=== PATIENT | female | born 1965 | race Caucasian/White ===

== ENCOUNTER 2020-08-20 07:56 | Outpatient (CLI) | payer OTHER, SELFPAY ==
--- NOTE | ~2020-08-20 | US_ITS ---
US right upper quadrant INDICATION: Abnormal liver function tests PROCEDURE: Realtime right upper abdominal ultrasound. COMPARISON: 02/13/2019 FINDINGS: The pancreas is normal without focal mass or pancreatic ductal dilation. Liver echotexture is increased, consistent with fatty infiltration. There is normal directional flow in the portal ve in. The gallbladder is normal without stones, gallbladder wall thickening or pericholecystic fluid. Comm on bile duct measures 4 mm. No sonographic Guerrier's sign. IMPRESSION: 1: Hepatic steatosis. Reviewed, dictated and finalized at location B. IMPRESSION: 1: Hepatic steatosis.
== END 2020-08-20 07:57 | disposition home or self-care (01) ==
PROVIDERS: PCP Family Medicine; Visit Provider Family Medicine
DX: R94.5 Abnormal results of liver function studies (principal); K76.0 Fatty (change of) liver, not elsewhere classified
CPT/HCPCS: 76705

== ENCOUNTER 2021-11-24 11:37 | Outpatient (CLI) | payer OTHER, SELFPAY ==
--- NOTE | ~2021-11-24 | XR_ITS ---
EXAMINATION: XR chest 2V 11/24/2021 12:11 INDICATION: Cough for 6 days PROCEDURE: 2 view chest COMPARISON: Comparison to multiple prior studies sequentially, with oldest reviewed study dated . FINDINGS: There is right basilar atelectasis. No focal pneumonia, edema, pleural effusion or pneumoth orax. The cardiomediastinal silhouette is within normal limits. IMPRESSION: 1: Right basilar atelectasis. Reviewed, dictated and finalized at location B.
== END 2021-11-24 11:38 | disposition home or self-care (01) ==
PROVIDERS: PCP Family Medicine; Visit Provider Family Medicine
DX: R05.9 Cough, unspecified (principal); J98.11 Atelectasis
CPT/HCPCS: 71046

== ENCOUNTER 2022-02-14 15:03 | Inpatient (IN) | payer OTHER, SELFPAY ==
[2022-02-14] VITALS (7 sets, daily range): BP systolic 72–152; BP diastolic 55–92; PULSE 87–100; RESP 16–23; TEMP 36.2; O2SAT 96–98
--- NOTE | ~2022-02-14 | US_ITS ---
US abdomen limited DATE: 02/15/2022 22:23 INDICATION: Elevated alkaline phosphatase TECHNIQUE: Real-time imaging of liver, pancreas, gallbladder COMPARISON: 02/14/2022 CT abdomen pelvis FINDINGS: There are numerous hypoattenuating mass lesions vertebral size throughout the liver most li vipul due to extensive hepatic metastatic disease. There is normal hepatopedal portal venous flow. The gallbladder is contracted which may account for wall thickening up to approximately 6 mm. Negativ e sonographic Guerrier's sign. Common bile duct measures 5 mm, within normal limits. No pancreatic mass lesion or ductal dilatation is noted. IMPRESSION: Extensive hepatic masses throughout the liver, likely due to metastatic disease Reviewed, dictated and finalized at [facility]. Reviewed, dictated and finalized at location A. ATION REVIEWER IMPRESSION: Extensive hepatic masses throughout the liver, likely due to metast atic disease
--- NOTE | ~2022-02-14 | US_ITS ---
EXAMINATION: US biopsy liver DATE: 02/16/2022 14:38 INDICATION: Liver mass. TECHNIQUE: The procedure including the risks, benefits, and alternatives was discussed with the patie nt. Risks discussed included bleeding and infection. The patient understood the risks and agreed to p roceed. The skin overlying the left hepatic lobe was prepped and draped in usual sterile fashion. An esthetic was administered with 1% lidocaine subcutaneously. An 18 gauge core biopsy needle was then used to obtain 4 core biopsy specimens under continuous sonographic guidance. The entry site was eileen charles and dressed. There were no immediate complications. FINDINGS: Ultrasound images demonstrate the needle in a 4 cm hypoechoic mass in left hepatic lobe. IMPRESSION: 1. Ultrasound-guided core needle biopsy of a liver mass. Reviewed, dictated and finalized at location A. ROOM COURIER
--- NOTE | ~2022-02-14 | CT_ITS ---
EXAMINATION: CT diagnostic chest w con DATE: 02/17/2022 19:19 INDICATION: Cough and weakness TECHNIQUE: Transaxial computed tomographic images of the chest were obtained after the administration of 75 cc of Omnipaque 350 intravenous contrast. The dose-length product (DLP) was 157.49 mGy-cm. Ite rative reconstruction was used. COMPARISON: None FINDINGS: There is widespread thoracic lymphadenopathy involving the supraclavicular regions, the rig ht upper mediastinum, right paratracheal lymph nodes, aorticopulmonary window lymph nodes, the bilate ral suad, and subcarinal lymph nodes. There are small pleural effusions. There is dependent atelectas is of the lungs. There is widespread intralobular septal thickening which could reflect mild pulmonar y edema. The heart size is normal. There is scarring in the lung apices. There are innumerable hypoat tenuating masses scattered throughout the visualized liver. Also noted are multiple hypoattenuating l esions of the spleen. IMPRESSION: 1. Widespread thoracic lymphadenopathy and innumerable liver masses, consistent with metastatic disea se. Liver biopsy pending. 2. Small pleural effusions with dependent atelectasis. 3. Interlobular septal thickening of the lungs which could reflect pulmonary edema. Reviewed, dictated and finalized at location F. ING DRAGLINE OILER IMPRESSION: 1. Widespread thoracic lymphadenopathy and innumerable liver masses, consistent with metastatic disease. Liver biopsy pending. 2. Small pleural effusions with dependent atelectasis. 3. Interlobular septal thickening of the lungs which could reflect pulmonary ed evelyn.
--- NOTE | ~2022-02-14 | MR_ITS ---
MRI of the abdomen: Clinical indication: Abdominal pain. Technique: Coronal T2-weighted, T2 fat-sat, axial T1-weighted in and out of phase images, diffusion w eighted imaging, T2-weighted imaging was performed. Following intravenous administration of 14 cc Mul tiHance gadolinium, T1-weighted fat-sat imaging was performed in the axial and coronal planes. COMPARISON: CT scan dated 02/14/2022 Findings: There are innumerable T2 hyperintense, T1 hypointense lesions scattered throughout the live r, with the lesions demonstrating surrounding parenchymal edematous change on T2-weighted images. The re is peripheral enhancement of the lesions on postcontrast images. Gallbladder, pancreas, adrenal glands, and kidneys are unremarkable. Spleen demonstrates several lesi ons which are hypointense on both T1-weighted and T2-weighted images, without significant postcontras t enhancement. Shotty periaortic lymph nodes are noted. No aortic aneurysm. No ascites. Impression: Innumerable hepatic lesions, as detailed above, which correlate with those seen on yesterday's CT sca n. Findings are again suspicious for metastatic disease versus the possibility of numerous small hepa tic abscesses. Clinical correlation required. Consider tissue sampling. Shotty periaortic lymph nodes. These could be reactive versus metastatic in nature. Several splenic lesions are hypointense on both T1-weighted and T2-weighted images, without significa nt postcontrast enhancement. These are nonspecific. Reviewed, dictated and finalized at [facility]. UNICATIONS TOWER TECHNICIAN Impression: Innumerable hepatic lesions, as detailed above, which correlate with those seen on yesterday's CT scan. Findings are again suspicious for metastatic disease v ersus the possibility of numerous small hepatic abscesses. Clinical correlation required. Consider tissue sampling. Shotty periaortic lymph nodes. These could be reactive versus metastatic in demond ure. Several splenic lesions are hypointense on both T1-weighted and T2-weighted bambi ges, without significant postcontrast enhancement. These are nonspecific.
--- NOTE | ~2022-02-14 | CT_ITS ---
EXAMINATION: CT brain wo con DATE: 02/14/2022 17:59 INDICATION: One week of worsening weakness, dizziness and lack of coordination TECHNIQUE: Computed tomography (CT) of the head was performed without intravenous contrast. Sagittal and coronal reconstructions were performed. The mA was adjusted according to patient size. Iterative reconstruction technique was employed. The dose-length product was 605.33 mGy-cm. COMPARISON: None FINDINGS: No acute intracranial hemorrhage, acute infarction or abnormal extra axial fluid collection. There is mild scattered white matter hypoattenuation consistent with chronic small vessel ischemic disease. S ymmetric prominence of the sulci and subarachnoid spaces overlying the convexities consistent with mi ld age-appropriate diffuse cerebral volume loss. Ventricles are normal and symmetric. No mass/mass ef fect. Mucosal thickening in the bilateral ethmoid sinuses and small amount of bubbly mucus in the dep endent right maxillary sinus. The orbits and mastoid air cells are normal. IMPRESSION: 1. No acute intracranial process. 2. Age-related changes in the brain including mild diffuse volume loss and mild scattered white matte r hypoattenuation consistent with chronic small vessel ischemic disease. 3 . Bubbly mucus in the right maxillary sinus which could be seen with acute sinusitis. Reviewed, dictated and finalized at location A. IAC CATH TECHNICIAN IMPRESSION: 1. No acute intracranial process. 2. Age-related changes in the brain including mild diffuse volume loss and mild scattered white matter hypoattenuation consistent with chronic small vessel is chemic disease. 3 . Bubbly mucus in the right maxillary sinus which could be seen with acute si nusitis.
--- NOTE | ~2022-02-14 | XR_ITS ---
EXAMINATION: XR chest 2V DATE: 02/14/2022 15:41 INDICATION: One week of cough and weakness TECHNIQUE: PA and lateral views of the chest were obtained. COMPARISON: Chest radiograph dated 11/24/2021 FINDINGS: Mild bronchial wall thickening and increased interstitial pattern in the bilateral lower lung zones. No pleural effusion or pneumothorax. The cardiomediastinal silhouette is normal. Mild to moderate tho racic spondylosis. IMPRESSION: 1. Mild bronchial wall thickening and increased interstitial pattern in the bilateral lower lung zone s which could represent bronchitis potentially with early pneumonia, reactive airway disease/asthma o r mild pulmonary edema. Reviewed, dictated and finalized at location A. L CLEANER TUBE IMPRESSION: 1. Mild bronchial wall thickening and increased interstitial pattern in the karen ateral lower lung zones which could represent bronchitis potentially with early pneumonia, reactive airway disease/asthma or mild pulmonary edema.
--- NOTE | ~2022-02-14 | CT_ITS ---
EXAMINATION: CT abdomen pelvis w con DATE: 02/14/2022 19:07 INDICATION: Right upper quadrant abdominal pain, nausea and vomiting TECHNIQUE: Computed tomography (CT) of the abdomen and pelvis was performed with 100 mL Omnipaque-350 intravenous contrast. Automated exposure control and iterative reconstruction technique were employe d. The dose-length product was 220.20 mGy-cm. COMPARISON: None FINDINGS: Mild emphysema at the lung bases. Heart size is normal. No pericardial or pleural effusion. Hepatomeg brigido. There are multiple centrally hypodense lesions scattered throughout the liver with ill-defined p eripherally enhancing rims, the largest individual lesion located in the posterior right hepatic lobe with the hypodense region measuring proximal a 2 cm diameter and diameter of the region of periphera l enhancement measuring approximately 3.3 cm. A few of the lesions become nearly confluent in segment 4A at the anteromedial dome of the liver. Gallbladder, pancreas, bilateral adrenal glands and kidney s are normal. Possible approximately 1.5 cm region at the cephalad aspect of the pancreas with air ap pears to be very subtly decreased enhancement. Extensive colonic diverticulosis without adjacent infl ammatory stranding to suggest diverticulitis mild colonic wall thickening most prominent at the ascen ding and sigmoid colon suspicious for colitis which could be infectious, inflammatory or ischemic in etiology. No bowel obstruction. Normal appendix. Small amount of ascites in the deep pelvis. There ar e some periportal lymphadenopathy. Bladder and anteverted uterus are unremarkable. There are few phle boliths in the pelvis with moderate lower thoracic and mild lumbar spondylosis. IMPRESSION: 1. Numerous peripherally enhancing centrally hypodense lesions scattered throughout the liver most li vipul metastatic disease although differential would include hepatic abscesses in the appropriate clin ical setting. Consider ultrasound-guided biopsy and/or aspiration. 2. Diffuse colonic wall thickening consistent with colitis which could be infectious, inflammatory or ischemic in etiology. 3. Possible 1.5 cm slightly hypoenhancing lesion at the dome of the spleen potentially metastatic. 4. Periportal lymphadenopathy which could be reactive or metastatic. 5. Extensive diverticulosis. 6. Small amount of ascites in the pelvis. 7. Mild emphysema at the lung bases.. Reviewed, dictated and finalized at location A. SMISSION SUPERVISOR IMPRESSION: 1. Numerous peripherally enhancing centrally hypodense lesions scattered throug hout the liver most likely metastatic disease although differential would inclu de hepatic abscesses in the appropriate clinical setting. Consider ultrasound-g uided biopsy and/or aspiration. 2. Diffuse colonic wall thickening consistent with colitis which could be infec tious, inflammatory or ischemic in etiology. 3. Possible 1.5 cm slightly hypoenhancing lesion at the dome of the spleen pote ntially metastatic. 4. Periportal lymphadenopathy which could be reactive or metastatic. 5. Extensive diverticulosis. 6. Small amount of ascites in the pelvis. 7. Mild emphysema at the lung bases..
--- NOTE | 2022-02-14 15:19 | ECG_ITS ---
Measurements Intervals Disney Rate: 116 P: 87 OR: 158 QRS: 79 QRSD: 104 T: 60 QT: 356 QTc: 496 Interpretive Statements SINUS TACHYCARDIA MARKED ST DEPRESSION, CONSIDER SUBENDOCARDIAL INJURY [0.2+ mV ST DEPRESSION] NO PREVIOUS ECG AVAILABLE FOR COMPARISON Electronically Signed On 02-14-2022 22:08:54 SUPPLY CHAIN PLANNER by Lilli Wall M.D.
[2022-02-14 16:07] LABS: Lactic Acid Reflex 1.6 mmol/L (0.7-2.0)
[2022-02-14] MEDS: SODIUM CHLORIDE 0.9% IV 1,000 ML 999 ML (16:18)
--- NOTE | 2022-02-14 16:19 | PC.NURSE ---
Pt hypotensive in triage, no rooms available at this time. Bolus of NS started per Dr. Major
[2022-02-14 16:47] LABS: Influenza A QL RT-PCR Negative (Negative); Influenza B QL RT-PCR Negative (Negative); RSV RNA, RT-PCR Negative (Negative); SARS-CoV-2 RNA PCR Negative
--- NOTE | 2022-02-14 17:21 | ED.GENADULT ---
HPI - General Adult General Chief complaint: Weakness <ANDRY Anderson Last Filed: 02/15/22 02:59> Stated complaint: weakness <ANDRY Anderson Last Filed: 02/15/22 02:59> Time Seen by Provider: 02/14/22 17:04 <Clarisa Dooley PA-C - Last Filed: 02/15/22 02:59> Source: patient and family <ANDRY Anderson Last Filed: 02/15/22 02:59> Mode of arrival: ambulatory <ANDRY Anderson Last Filed: 02/15/22 02:59> Limitations: no limitations <Clarisa Dooley PA-C - Last Filed: 02/15/22 02:59> History of Present Illness HPI narrative: Patient is a 56-year-old female who presents ED with multiple complaints. Patient reports she has had a nonproductive cough for the last 1 week. She states she had an episode of abdominal pain and dizziness last week. She denies having any pain or dizziness currently. at bedside assisted in providing information. He reports patient is a 20 yr alcoholic, daily drinker, 1/2 - 3/4 fifth per day. He states she has not drank since and vomited after drinking that day. She has been mostly sleeping every day over the weekend. He denies history of withdrawal symptoms or withdrawal seizures. He states he brought the patient in today because she has been so weak with decreased PO intake, he is concerned her body is shutting down from the alcohol abuse. He states she has not been functioning much on her own this past week. Patient denies any headache, vision changes, fever, chest pain, difficulty breathing. <ANDRY Anderson Last Filed: 02/15/22 02:59> Related Data Home medications: Home Medications Medication Instructions Recorded Confirmed losartan 100 mg tablet 100 mg PO DAILY 07/23/21 02/15/22 metoprolol succinate 100 mg 100 mg PO DAILY 07/23/21 02/15/22 tablet,extended release 24 hr rosuvastatin 10 mg tablet 10 mg PO DAILY 02/15/22 02/15/22 <Clarisa Dooley PA-C Last Filed: 02/15/22 02:59> Allergies/adverse reactions: Allergies Allergy/AdvReac Type Severity Reaction Status Date / Time No Known Allergies Allergy Verified 02/15/22 17:45 <Clarisa Dooley PA-C Last Filed: 02/15/22 02:59> Review of Systems Review of Systems: CONSTITUTIONAL: Reports generalized weakness, decreased intake. Denies fever, chills, or sweats. EYES: Denies visual changes. ENT: Denies rhinorrhea, congestion, sore throat. CARDIOVASCULAR: Denies chest pain. RESPIRATORY: Reports dry cough. Denies dyspnea. GASTROINTESTINAL: Denies abdominal pain, nausea, vomiting, or diarrhea. GENITOURINARY: Denies dysuria or hematuria. NEUROLOGIC: Reports dizziness. Denies headache, numbness, or weakness. <Clarisa Dooley PA-C Last Filed: 02/15/22 02:59> All systems reviewed & are unremarkable except as noted in HPI and below <Clarisa Dooley PA-C Last Filed: 02/15/22 02:59> PMFSH Past Medical History Medical History: Medical History HTN (hypertension) Hyperlipidemia <Clarisa Dooley PA-C Last Filed: 02/15/22 02:59> Surgical History Surgical History: Surgical History History of ankle surgery History of carpal tunnel release of both wrists History of endometrial ablation History of knee surgery <Clarisa Dooley PA-C Last Filed: 02/15/22 02:59> Family History Family History: Family History Other Cerebrovascular accident Diabetes mellitus Family history of arthritis Family history of malignant neoplasm Heart disease Hypertension <Clarisa Dooley PA-C Last Filed: 02/15/22 02:59> Social History Social History: Social History Smoking packs per day: 0.5 Smoking cigarettes per day: 10.0 Smok
[2022-02-14 18:02] LABS: Basophils Absolute Auto 0.1 K/mm3 (0.0-0.1); Basophils Percent Auto 0.6 % (0.2-1.2); Eosinophils Percent Auto 0.1 % (0-4.4); Hematocrit 38.5 % (37.0-47.0); Hemoglobin 13.6 g/dL (12.0-15.0); Immature Granulocyte Absolute 0.13 K/mm3 (0.00-0.031); Immature Granulocyte Percent A 1.5 % (0-0.5); Lymphocytes Absolute Auto 0.92 K/mm3 (0.9-3.2); Lymphocytes Percent Auto 10.5 % (18.3-44.2); Mean Corpuscular HGB Conc 35.3 g/dl (32-36); Mean Corpuscular Hemoglobin 32.9 pg (26-34); Mean Platelet Volume 12.9 fl (7.4-10.4); Monocytes Absolute Auto 1.2 K/mm3 (0.1-0.6); Monocytes Percent Auto 13.8 % (2.6-8.5); Neutrophils Absolute Auto 6.5 K/mm3 (1.3-6.7); Neutrophils Percent Auto 73.5 % (45.5-73.1); Platelet Count Result 184 k/mm3 (150-375); Red Blood Count 4.14 M/mm3 (4.2-5.4); White Blood Count 8.8 K/mm3 (4.5-10.0)
[2022-02-14 18:09] LABS: Ethanol < 10 mg/dL (<10)
[2022-02-14 18:10] LABS: Prothrombin Time 12.9 Seconds (11.1-14.7)
[2022-02-14 18:11] LABS: Partial Thromboplastin Time 25.1 SECONDS (22.3-36.8)
[2022-02-14 18:22] LABS: NT Pro B Type Natriuretic Pept 616 pg/mL (5-100); Troponin I 0.016 ng/mL (0.000-0.034)
[2022-02-14 18:25] LABS: Alanine Aminotransferase 50 U/L (6-35); Albumin Level 3.6 g/dL (3.5-5.1); Alkaline Phosphatase 320 U/L (38-126); Anion Gap 8 mmol/L (8-16); Aspartate Amino Transferase 140 U/L (14-36); Bilirubin,Total 1.4 mg/dL (0.2-1.3); Blood Urea Nitrogen 17 mg/dL (7-17); Carbon Dioxide 33 mmol/L (22-30); Chloride 91 mmol/L (98-107); Estimated CRCL calculation 55 ml/min; Estimated Glomerular Filt Rate > 60; Glucose 105 mg/dL (65-110); Sodium 132 mmol/L (137-145)
[2022-02-14 18:27] LABS: Calcium 14.2 mg/dL (8.4-10.2)
[2022-02-14] MEDS: POTASSIUM CHLORIDE 20 MEQ PACKET (FOR LIQUID) 40 MEQ PO (18:45)
--- NOTE | 2022-02-14 18:53 | PC.NURSE ---
Pt to CT scan via stretcher at this time.
[2022-02-14 18:55] LABS: Bacteria Urine Trace /hpf; Mucus Urine Rare /lpf; RBC Urine 0-2 /hpf (0-2); Squamous Epithelial Cell Urine Few /hpf (Few)
[2022-02-14 19:03] LABS: Add Urine Microscopic? YES; Appearance Urine Clear (Clear); Bilirubin Urine 2+ (Negative); Blood Urine Negative (Negative); Color Urine Yellow (Yellow); Glucose Urine UA Negative (Negative); Ketones Urine 1+ mg/dL (Negative); Leukocyte Esterase Ur Negative LEU/UL (Negative); Nitrate Urine Negative (Negative); Protein Urine 1+ mg/dL (Negative)
[2022-02-14 19:12] LABS: Amphetamine Screen Urine Negative (Negative); Barbiturate Screen Urine Negative (Negative); Benzodiazepines Screen Urine Negative (Negative); Cannabinoid Screen Urine Negative (Negative); Cocaine Screen Urine Negative (Negative); Methadone Screen Urine Negative (Negative); Opiate Screen Urine Negative (Negative); Phencyclidine Screen Urine Negative (Negative)
--- NOTE | 2022-02-14 20:25 | PM.IMHP ---
H&P: HPI History of Present Illness Date/Time: 02/14/22 20:25 Chief Complaint: Generalized weakness Narrative: This is a 56-year-old female with past medical history significant for hypertension, alcohol dependence, tobacco dependence, dyslipidemia. patient presents to the emergency room due to generalized weakness, shortness of breath, fatigue, decreased stamina, cough, nonproductive, no change in sputum quality, no chest pain, no leg swelling, no syncope, near syncope, no lightheadedness, no fevers, no rigors, no chills, no nausea, no vomiting, no weight loss, patient has been very tired and sleeping most of the day as of lately.. Preliminary workup was significant for: CT of abdomen and pelvis was reported as: IMPRESSION: 1. Numerous peripherally enhancing centrally hypodense lesions scattered throughout the liver most likely metastatic disease although differential would include hepatic abscesses in the appropriate clinical setting. Consider ultrasound-guided biopsy and/or aspiration. 2. Diffuse colonic wall thickening consistent with colitis which could be infectious, inflammatory or ischemic in etiology. 3. Possible 1.5 cm slightly hypoenhancing lesion at the dome of the spleen potentially metastatic. 4. Periportal lymphadenopathy which could be reactive or metastatic. 5. Extensive diverticulosis. 6. Small amount of ascites in the pelvis. 7. Mild emphysema at the lung bases.. chest x-ray was reported as: IMPRESSION: 1. Mild bronchial wall thickening and increased interstitial pattern in the bilateral lower lung zones which could represent bronchitis potentially with early pneumonia, reactive airway disease/asthma or mild pulmonary edema. CT of the head was reported as: IMPRESSION: 1. No acute intracranial process. 2. Age-related changes in the brain including mild diffuse volume loss and mild scattered white matter hypoattenuation consistent with chronic small vessel ischemic disease. 3 . Bubbly mucus in the right maxillary sinus which could be seen with acute sinusitis. Review of Systems Review of Systems: generalized weakness, shortness of breath, cough, decreased stamina, poor appetite. Constitutional: Constitutional: Denies chills, Reports fatigue, Denies fever(s), Reports lethargy, Denies malaise, Reports poor appetite and Reports weakness Eyes: Eyes: Denies change in vision ENT: Denies dysphagia, Denies vertigo, Denies dizziness and Denies odynophagia Cardiovascular: Cardiovascular: Denies chest pain, Denies lightheadedness and Denies radiating jaw, neck or arm pain Respiratory: Respiratory: Denies change in phlegm color, Denies chest congestion, Reports cough, Denies excessive phlegm production, Denies pain on inspiration, Reports dyspnea, Reports dyspnea on exertion and Denies wheezing Gastrointestinal: Gastrointestinal: Denies abdominal pain, Denies dyspepsia, Denies heartburn, Denies diarrhea, Denies nausea and Denies vomiting Genitourinary: Genitourinary: Denies dysuria Musculoskeletal: Musculoskeletal: Denies back pain, Denies myalgias, Denies arthralgias, Denies joint swelling, Denies muscle cramps and Reports muscle weakness Integumentary/Breasts: Skin/Breast: Denies rash Neurologic: Denies vertigo, Denies dizziness, Denies focal weakness and Denies Sensory deficit (Neuro) Psychiatric: Psychiatric: Reports no additional psychiatric complaints and Reports as per HPI Endocrine: Endocrine: Denies cold intolerance, Denies flushing, Denies heat intolerance, Denies polyphagia, Denies polydipsia and Denies palpitations Hematologic/Lymphatic: Hematologic/Lymphatic: Reports no additional hematologic/lymphatic complaints and Reports as per HPI Allergic/Immunologic: Allergic/Immunologic: Reports no additional allergic/immunologic complaints and Reports as per HPI PMFSH Past Medical History Medical History HTN (hypertension) Hyperlipidemia Garcias
[2022-02-14] MEDS: POTASSIUM CHLORIDE INJ 40 MEQ in SODIUM CHLORIDE 0.9% IV 500 ML 130 MEQ IVPB (20:46)
[2022-02-15] VITALS (15 sets, daily range): BP systolic 130–164; BP diastolic 77–98; PULSE 92–103; RESP 15–23; TEMP 36.8; O2SAT 94–98
--- NOTE | 2022-02-15 | ECHO_ITS ---
Patient Info Name: Kathy Mccloud Age: 56 years : 1965 Gender: Female Ht: 65 in Wt: 154 lbs BSA: 1.80 m2 HR: 70 bpm BP: 151 / 86 mmHg Heart Rhythm: Sinus Rhythm Technical Quality: Good Exam Date: 02/15/2022 11:25 AM Exam Location: [facility] Pulmonary Exam Room: ED4B1 Patient Status: Outpatient Admit Date: 02/14/2022 Staff Ordering Physician: Trisha Waterman MD Loader Helper Sorting Yard: Stella Cevallos RCS Attending Provider: Trisha Waterman MD Referring Physician: Columba VORA; Exam Type: CA echo doppler color flow Study Info Indications - SOB Complete two-dimensional, color flow and Doppler transthoracic echocardiogram is performed. Summary 1. Complete two-dimensional, color flow and Doppler transthoracic echocardiogram is performed. 2. Left ventricular chamber dimension is normal. 3. Left ventricular systolic function is normal, estimated at 65-70%. 4. There is no increased left ventricular wall thickness. 5. The left ventricular diastolic function is grade I diastolic dysfunction. 6. Left atrial chamber dimension is mildly enlarged. 7. There is mild tricuspid valve regurgitation. 8. There is mild pulmonic regurgitation. Left Ventricle Left ventricular chamber dimension is normal. Left ventricular systolic function is normal, estimated at 65-70%. There is no increased left ventricular wall thickness. The left ventricular diastolic function is grade I diastolic dysfunction. Right Ventricle Right ventricular chamber dimension is normal. Right ventricular systolic function is normal. Left Atria Left atrial chamber dimension is mildly enlarged. Right Atria Right atrial chamber dimension is normal. Atrial Septum Intact interatrial septum visualized by color flow imaging. Aortic Valve The aortic valve is trileaflet. There is mild aortic valve sclerosis. There is no aortic valve stenosis. There is trace aortic valve regurgitation. Pulmonic Valve The pulmonic valve is normal. There is no pulmonic valve stenosis. There is mild pulmonic regurgitation. Mitral Valve The mitral valve has normal leaflets. There is no mitral valve stenosis. There is trace mitral valve regurgitation. Tricuspid Valve The tricuspid valve leaflets are normal. There is no significant tricuspid valve stenosis. There is mild tricuspid valve regurgitation. No pulmonary hypertension, estimated pulmonary arterial systolic pressure is 34 mmHg. Inferior Vena Cava Normal inferior vena cava with >50% collapse upon inspiration consistent with normal right atrial pressure, 10 mmHg. Aorta The aortic root size at the sinus of Valsalva is normal. Left Ventricular Outflow Tract Name Value Normal LVOT 2D LVOT Diameter 2.0 cm LVOT Doppler LVOT Peak Gradient 4 mmHg LVOT Mean Gradient 2 mmHg LVOT VTI 19 cm LVOT VTI/AV VTI Ratio 0.9 LVOT Stroke Volume 58 ml Pulmonic Valve N
[2022-02-15] MEDS: cefTRIAXone 2 GM in SODIUM CHLORIDE 0.9% IV 100 ML 200 ML IVPB (06:24)
--- NOTE | 2022-02-15 06:57 | WPDGICN ---
Assessment and Plan Assessment and plan (1) Hepatomegaly: Code(s): R16.0 - Hepatomegaly, not elsewhere classified Status: Acute Assessment and Plan: her liver is large and nontender on exam. I suspect metastatic liver disease. Will order tumor markers (2) Hepatic metastasis: Code(s): C78.7 - Secondary malignant neoplasm of liver and intrahepatic bile duct Status: Acute Assessment and Plan: given the size of her liver I suspect metastatic or other infiltrative disease, Particularly with alkaline phosphatase being the highest liver enzyme. liver biopsy is scheduled for today by IR (3) Acute hypokalemia: Code(s): E87.6 - Hypokalemia Status: Acute Assessment and Plan: Initial potassium 2.0. This has been addressed. Repeat level pending (4) Colitis: Code(s): K52.9 - Noninfective gastroenteritis and colitis, unspecified Status: Acute Assessment and Plan: CT scan shows possible colitis. She has had somewhat loose stools lately (5) Alcohol abuse: Code(s): F10.10 - Alcohol abuse, uncomplicated Status: Acute Assessment and Plan: she admits to drinking quite a bit of vodka daily. She has never been hospitalized with an alcohol-related problem. Her last drink was 4 days ago when she denies any shakiness or withdrawal type symptoms GI Consult Note Consult date/time: 02/15/22 06:57 HPI: Kathy Mccloud is a 56 year old female who presented to the emergency room with complaints of weakness and fatigue as well as poor appetite. She states that she had not been vomiting except for once last evening in the emergency room. She simply has not been interested in food lately. She admits to drinking alcohol heavily for about 20 years, but got up, and she states that a few days ago she tried taking drinking that made her feel sick; consequently she has not had any alcohol for about 4 days. She has never been hospitalized for hospital related illness in the past. She states that she may have lost a few lb but does not weigh herself. CT scan of the abdomen was done which shows: 1. Numerous peripherally enhancing centrally hypodense lesions scattered throughout the liver most likely metastatic disease although differential would include hepatic abscesses in the appropriate clinical setting. Consider ultrasound-guided biopsy and/or aspiration. 2. Diffuse colonic wall thickening consistent with colitis which could be infectious, inflammatory or ischemic in etiology. 3. Possible 1.5 cm slightly hypoenhancing lesion at the dome of the spleen potentially metastatic. 4. Periportal lymphadenopathy which could be reactive or metastatic. 5. Extensive diverticulosis. 6. Small amount of ascites in the pelvis. 7. Mild emphysema at the lung bases.. Review of Systems Review of Systems: All systems reviewed & are unremarkable except as noted in HPI and below PMFSH Past Medical History Medical History HTN (hypertension) Hyperlipidemia Surgical History Surgical History History of ankle surgery History of carpal tunnel release of both wrists History of endometrial ablation History of knee surgery Family History Family History Other Cerebrovascular accident Diabetes mellitus Family history of arthritis Family history of malignant neoplasm Heart disease Hypertension Social History Social History Smoking status: Current every day smoker Tobacco type: cigarettes Alcohol intake: current Alcohol use details: alcoholism, 1/2 - 3/4 fifth per day Substance use: never Gender identity (if verbalized by the patient): Female Meds Home Medications and Allergies Home Medications Medication Instructions Recorded
[2022-02-15 07:33] LABS: Procalcitonin 0.5 ng/mL
--- NOTE | 2022-02-15 07:40 | PM.IMPN ---
Progress Note: A&P Assessment and Plan (1) Infiltrate of lung present on chest x-ray: Code(s): R91.8 - Other nonspecific abnormal finding of lung field Status: Acute Assessment and Plan: Increased wheezing and rhonchi. WBC 8.6, however, she c/o cough and shortness of breath. continue IV Rocephin and Zithromax blood cultures pending check sputum culture Start duonebs Q6 hours scheduled. continue supportive care and monitor respiratory status (2) Lesion of liver: Code(s): K76.9 - Liver disease, unspecified Status: Acute Assessment and Plan: Patient c/o abd pain. CT scan suggests numerous liver lesions, diffuse colonic wall thickening suggesting colitis and possilbe splenic lesion suggesting possible metastatic disease. GI constuled and appreciate recommendations. Liver MRI and abd US pending LFTs elevated. Calcium elevated which may be secondary to metastatic disease and dehydration (3) Acute hypokalemia: Code(s): E87.6 - Hypokalemia Status: Acute Assessment and Plan: K 2.0 on admission. She has had multiple episodes of vomiting. Given 40 mEQ PO and IV in the ED. Repeat K 2.4 02/15 magnesium 1.5. given 3 grams IV mag sulfate, 40 mEQ IV and 80 mEQ PO this am. Repeat K 3.5, will give additional 40 mEQ PO and repeat labs in the morning. Monitor telemetry (4) Alcoholism: Code(s): F10.20 - Alcohol dependence, uncomplicated Status: Chronic Assessment and Plan: CIWA protocol as needed PRN lorazepam for CIWA >8 PRN lorazepam 4 mg PRN IV for seizure activity Seizure precautions. Start multivitamin, thiamine and folic acid supplements Care coordination consulted for abstinence program information (5) Tobacco dependence: Code(s): F17.200 - Nicotine dependence, unspecified, uncomplicated Status: Chronic Assessment and Plan: Counseled to quit. nicotine patch as needed (6) Hepatomegaly: Code(s): R16.0 - Hepatomegaly, not elsewhere classified Status: Acute Assessment and Plan: Tumor markers pending Plan CODE STATUS: FULL CODE Disposition: observation Discharge destination: from home. PT/OT consulted Time Spent With Patient Time with patient: 25 - 35 minutes Subjective Date/time seen: 02/15/22 07:40 She has lower abdominal pain that is cramping. Unknown last stool, but she denies melena, hematochezia, or jose alberto colored stool. She still has some nausea and emesis that is brown. She denies anxiety, tremors, MOSCOSO, or hallucinations. She has generalized weakness. Review of Systems Review of Systems: All systems reviewed & are unremarkable except as noted in HPI and below Exam Narrative: General: No acute distress.? Well-developed adult female lying in bed. Appears older than stated age. Mental Status/Psych: Lethargic, GCS 13, oriented to person and place with clear and appropriate speech. Neutral mood and affect. Pleasant and cooperative. Skin: Skin fair, warm, dry and intact without rashes or lesions. No jaundice. No open wounds. Good turgor.? HEENT: Normocephalic. Sclera is non-icteric. EOM intact. PERRLA. Grossly normal hearing. Oral mucosa dry. Tongue midline. Oropharynx within normal limits. Neck: Supple. Thyroid without nodularity. Trachea midline. No JVD. Heart: S1 and S2 regular rate and rhythm. No murmurs, gallops, or rubs auscultated. Chest: Respirations even and unlabored. Lung sounds wheezing and coarse in all peace. No retractions. Abdomen: Soft, round and tender to palpation in right and left lower quadrants.? Bowel sounds present in all 4 quadrants. No guarding. Extremities:? Grossly normal ROM all extremities. No edema, erythema or calf tenderness. Radial and dorsalis pedis pulses +2 bilaterally. Neurological: No focal deficits. Cranial nerves 2-12 grossly intact.?No pronator drift. Muscle strength 4-5/5 all extremities. Objective Data Vital Signs Vital Signs: Vital Signs - 24 h
[2022-02-15 08:01] LABS: Basophils Percent Auto 0.4 % (0.2-1.2); Eosinophils Percent Auto 0.1 % (0-4.4); Hematocrit 35.2 % (37.0-47.0); Hemoglobin 12.3 g/dL (12.0-15.0); Immature Granulocyte Percent A 1.2 % (0-0.5); Lymphocytes Absolute Auto 0.98 K/mm3 (0.9-3.2); Lymphocytes Percent Auto 11.4 % (18.3-44.2); Mean Corpuscular HGB Conc 34.9 g/dl (32-36); Mean Corpuscular Hemoglobin 33.2 pg (26-34); Mean Corpuscular Volume 95.1 fl (80-100); Mean Platelet Volume 13.1 fl (7.4-10.4); Monocytes Absolute Auto 1.3 K/mm3 (0.1-0.6); Monocytes Percent Auto 14.8 % (2.6-8.5); Neutrophils Absolute Auto 6.2 K/mm3 (1.3-6.7); Neutrophils Percent Auto 72.1 % (45.5-73.1); Platelet Count Result 201 k/mm3 (150-375); White Blood Count 8.6 K/mm3 (4.5-10.0)
[2022-02-15 08:11] LABS: Alanine Aminotransferase 49 U/L (6-35); Alkaline Phosphatase 293 U/L (38-126); Anion Gap 4 mmol/L (8-16); Aspartate Amino Transferase 142 U/L (14-36); Bilirubin,Total 1.3 mg/dL (0.2-1.3); Blood Urea Nitrogen 15 mg/dL (7-17); Calcium 13.9 mg/dL (8.4-10.2); Carbon Dioxide 34 mmol/L (22-30); Chloride 97 mmol/L (98-107); Estimated CRCL calculation 70 ml/min; Estimated Glomerular Filt Rate > 60; Glucose 117 mg/dL (65-110); Potassium 2.4 mmol/L (3.4-5.0); Sodium 135 mmol/L (137-145)
[2022-02-15 08:13] LABS: Magnesium 1.5 mg/dL (1.6-2.3)
[2022-02-15] MEDS: KCL 40 MEQ/0.9% SOD CHL 1,000 ML 70 ML IV CONT (08:27)
[2022-02-15] MEDS: POTASSIUM CHLORIDE INJ 40 MEQ in SODIUM CHLORIDE 0.9% IV 500 ML 130 MEQ IVPB (08:52)
[2022-02-15] MEDS: MAGNESIUM SULFATE 3GM/D5W100ML 3 GM/100 ML BAG IVPB (09:55)
[2022-02-15] MEDS: POTASSIUM CHLORIDE 20 MEQ TABLET 80 MEQ PO (11:03)
[2022-02-15] MEDS: THIAMINE HCL 100 MG TABLET PO (11:42)
[2022-02-15] MEDS: MULTIVITAMINS THERAPEUTIC TAB (*BKC) 1 TABLET PO (11:42)
[2022-02-15] MEDS: ALBUTEROL SULFATE NEB 2.5 MG/3 ML INH INHALATION (14:38)
[2022-02-15] MEDS: IPRATROPIUM BR 0.02% INH SOLN 0.5 MG/2.5 ML VIAL INHALATION (14:38)
[2022-02-15 15:11] LABS: Magnesium 2.4 mg/dL (1.6-2.3); Potassium 3.5 mmol/L (3.4-5.0)
[2022-02-15] MEDS: ENOXAPARIN 80 MG/0.8 ML SYRINGE (15:43)
--- NOTE | 2022-02-15 16:05 | ADMGEN ---
This patient, Kathy Mccloud, was admitted to 3 Med Surg Room 327-01. Patient/family oriented to hospital policies and general routines including ID bracelet, bed and alarms, visiting hours, pain management, procedures, bathroom and other care routines, personal items, smoking policy, room service/diet, and visiting hours. Information on how to activate the Rapid Response Team has been discussed. Patient/Family are encouraged to report perceived risks to care and to ask questions if they do not understand what they are told or what they should do.
[2022-02-15] MEDS: POTASSIUM CHLORIDE 20 MEQ TABLET 40 MEQ PO (18:26)
[2022-02-15] MEDS: METOPROLOL SUCCINATE EXT REL 100 MG TABCR PO (21:17)
--- NOTE | 2022-02-15 23:49 | PCRCNOTE ---
omitted tx load heavy
[2022-02-16] VITALS (9 sets, daily range): BP systolic 138–148; BP diastolic 83–96; PULSE 72–89; RESP 16–18; TEMP 36.2–36.3; O2SAT 97–99; BMI 25.7
[2022-02-16] MEDS: ALBUTEROL SULFATE NEB 2.5 MG/3 ML INH INHALATION ×2 (02:30→22:35)
[2022-02-16] MEDS: IPRATROPIUM BR 0.02% INH SOLN 0.5 MG/2.5 ML VIAL INHALATION ×2 (02:30→22:35)
[2022-02-16] MEDS: cefTRIAXone 2 GM in SODIUM CHLORIDE 0.9% IV 100 ML 125 ML IVPB (04:40)
[2022-02-16 07:00] LABS: Basophils Absolute Auto 0.1 K/mm3 (0.0-0.1); Basophils Percent Auto 0.8 % (0.2-1.2); Eosinophils Percent Auto 0.4 % (0-4.4); Hematocrit 37.3 % (37.0-47.0); Hemoglobin 12.5 g/dL (12.0-15.0); Immature Granulocyte Absolute 0.21 K/mm3 (0.00-0.031); Immature Granulocyte Percent A 2.1 % (0-0.5); Lymphocytes Absolute Auto 1.38 K/mm3 (0.9-3.2); Mean Corpuscular HGB Conc 33.5 g/dl (32-36); Mean Corpuscular Hemoglobin 32.5 pg (26-34); Mean Corpuscular Volume 96.9 fl (80-100); Mean Platelet Volume 12.7 fl (7.4-10.4); Monocytes Absolute Auto 1.3 K/mm3 (0.1-0.6); Monocytes Percent Auto 12.8 % (2.6-8.5); Neutrophils Absolute Auto 6.9 K/mm3 (1.3-6.7); Neutrophils Percent Auto 69.9 % (45.5-73.1); Platelet Count Result 229 k/mm3 (150-375); Red Blood Count 3.85 M/mm3 (4.2-5.4); Red Cell Distribution Width 13.2 % (11.5-14.5); White Blood Count 9.9 K/mm3 (4.5-10.0)
[2022-02-16 07:19] LABS: Alanine Aminotransferase 62 U/L (6-35); Albumin Level 3.2 g/dL (3.5-5.1); Alkaline Phosphatase 311 U/L (38-126); Anion Gap 5 mmol/L (8-16); Aspartate Amino Transferase 170 U/L (14-36); Bilirubin,Total 1.2 mg/dL (0.2-1.3); Blood Urea Nitrogen 10 mg/dL (7-17); Calcium 13.7 mg/dL (8.4-10.2); Carbon Dioxide 27 mmol/L (22-30); Chloride 107 mmol/L (98-107); Estimated CRCL calculation 70 ml/min; Estimated Glomerular Filt Rate > 60; Glucose 114 mg/dL (65-110); Potassium 4.2 mmol/L (3.4-5.0); Sodium 139 mmol/L (137-145)
[2022-02-16] MEDS: KCL 40 MEQ/0.9% SOD CHL 1,000 ML 70 ML IV CONT (07:48)
[2022-02-16] MEDS: SODIUM CHLORIDE 0.9% IV 1,000 ML 125 ML IV CONT (09:05)
--- NOTE | 2022-02-16 10:31 | PCRCNOTE ---
Window of time for administration has passed. See next scheduled administration.
--- NOTE | 2022-02-16 13:12 | PM.IMPN ---
Progress Note: A&P Assessment and Plan (1) Infiltrate of lung present on chest x-ray: Code(s): R91.8 - Other nonspecific abnormal finding of lung field Status: Acute Assessment and Plan: wheezing and rhonchi on admission. WBC 8.6, however, she c/o cough and shortness of breath. continue IV Rocephin and Zithromax; day 2. Transition to oral abx when afebrile 48 hours and able to take PO. blood cultures pending check sputum culture Continue duonebs Q6 hours scheduled. continue supportive care and monitor respiratory status (2) Lesion of liver: Code(s): K76.9 - Liver disease, unspecified Status: Acute Assessment and Plan: Patient c/o abd pain. CT scan suggests numerous liver lesions, diffuse colonic wall thickening suggesting colitis and possilbe splenic lesion suggesting possible metastatic disease. GI constuled and appreciate recommendations. Liver MRI multiple liver nodules. Biopsy in IR 02/16 abd US Extensive hepatic masses throughout the liver, likely due to metastatic disease? LFTs elevated- minimal change. Tbili decreased (3) Hepatic metastasis: Code(s): C78.7 - Secondary malignant neoplasm of liver and intrahepatic bile duct Status: Acute Assessment and Plan: Suggested on imaging. Unknown primary. Biopsy pending. Consult Oncology (4) Hypercalcemia: Code(s): E83.52 - Hypercalcemia Status: Acute Assessment and Plan: Calcium elevated which may be secondary to metastatic disease and dehydration Minimally changed calcium level. Presumed secondary to malignancy Continue IV fluids. Will give lasix 40 mg IV x1. Consider alternate measures if hypercalcemia persists. (5) Acute hypokalemia: Code(s): E87.6 - Hypokalemia Status: Acute Assessment and Plan: K 2.0 on admission. She has had multiple episodes of vomiting. Given 40 mEQ PO and IV in the ED. Repeat K 2.4 02/15 magnesium 1.5. given 3 grams IV mag sulfate, 40 mEQ IV and 80 mEQ PO this am. Repeat K 3.5, will give additional 40 mEQ PO and repeat labs in the morning. Monitor telemetry Improved. K within normal limits currently (6) Alcoholism: Code(s): F10.20 - Alcohol dependence, uncomplicated Status: Chronic Assessment and Plan: CIWA protocol as needed PRN lorazepam for CIWA >8 PRN lorazepam 4 mg PRN IV for seizure activity Seizure precautions. Start multivitamin, thiamine and folic acid supplements Care coordination consulted for abstinence program information (7) Tobacco dependence: Code(s): F17.200 - Nicotine dependence, unspecified, uncomplicated Status: Chronic Assessment and Plan: Counseled to quit. nicotine patch as needed (8) Hepatomegaly: Code(s): R16.0 - Hepatomegaly, not elsewhere classified Status: Acute Assessment and Plan: Tumor markers pending Plan CODE STATUS: FULL CODE Disposition: observation Discharge destination: from home. PT/OT consulted Time Spent With Patient Time with patient: 25 - 35 minutes Subjective Date/time seen: 02/16/22 13:12 She reports being hungry. No nausea or vomiting. She denies abdominal pain currently. She underwent liver biopsy today and is a little tender to that site. No chest pain or SOB. Minimal cough or sputum. Review of Systems Review of Systems: All systems reviewed & are unremarkable except as noted in HPI and below Exam Narrative: General: No acute distress.? Well-developed adult female lying in bed. Appears older than stated age. Mental Status/Psych: Awake GCS 15, oriented x3 with clear and appropriate speech. Neutral mood and affect. Pleasant and cooperative. Skin: Skin fair, warm, dry and intact without rashes or lesions. No jaundice. No open wounds. Good turgor.? HEENT: Normocephalic. Sclera minimal jaundice. EOM intact. PERRLA. Grossly normal hearing. Oral mucosa dry. Neck: Supple. No JVD. Heart: S1 and S2 regular
[2022-02-16 17:27] LABS: Ammonia < 9 umol/L (9-30)
[2022-02-16] MEDS: SENNA/DOCUSATE SODIUM TABLET 2 TAB PO (20:42)
[2022-02-16] MEDS: METOPROLOL SUCCINATE EXT REL 100 MG TABCR PO (20:42)
[2022-02-17] VITALS (10 sets, daily range): BP systolic 103–153; BP diastolic 51–89; PULSE 79–90; RESP 16–20; TEMP 36.4; O2SAT 98
[2022-02-17] MEDS: SODIUM CHLORIDE 0.9% IV 1,000 ML 125 ML IV CONT ×3 (00:11→13:44)
[2022-02-17] MEDS: cefTRIAXone 2 GM in SODIUM CHLORIDE 0.9% IV 100 ML 125 ML IVPB (06:02)
[2022-02-17 07:58] LABS: Basophils Absolute Auto 0.1 K/mm3 (0.0-0.1); Eosinophils Absolute Auto 0.1 K/mm3 (0-0.3); Eosinophils Percent Auto 0.8 % (0-4.4); Hematocrit 33.6 % (37.0-47.0); Hemoglobin 11.2 g/dL (12.0-15.0); Immature Granulocyte Absolute 0.23 K/mm3 (0.00-0.031); Immature Granulocyte Percent A 2.4 % (0-0.5); Lymphocytes Absolute Auto 1.24 K/mm3 (0.9-3.2); Lymphocytes Percent Auto 12.8 % (18.3-44.2); Mean Corpuscular HGB Conc 33.3 g/dl (32-36); Mean Platelet Volume 12.3 fl (7.4-10.4); Monocytes Absolute Auto 1.3 K/mm3 (0.1-0.6); Monocytes Percent Auto 13.1 % (2.6-8.5); Neutrophils Absolute Auto 6.8 K/mm3 (1.3-6.7); Neutrophils Percent Auto 69.9 % (45.5-73.1); Platelet Count Result 197 k/mm3 (150-375); Red Cell Distribution Width 13.2 % (11.5-14.5); White Blood Count 9.7 K/mm3 (4.5-10.0)
[2022-02-17] MEDS: IPRATROPIUM BR 0.02% INH SOLN 0.5 MG/2.5 ML VIAL INHALATION ×3 (08:06→21:34)
[2022-02-17] MEDS: ALBUTEROL SULFATE NEB 2.5 MG/3 ML INH INHALATION ×3 (08:06→21:35)
[2022-02-17 08:15] LABS: Albumin Level 2.7 g/dL (3.5-5.1); Carbon Dioxide 25 mmol/L (22-30); Estimated CRCL calculation 70 ml/min; Estimated Glomerular Filt Rate > 60
[2022-02-17 08:32] LABS: Alanine Aminotransferase 61 U/L (6-35); Alkaline Phosphatase 297 U/L (38-126); Anion Gap 5 mmol/L (8-16); Aspartate Amino Transferase 146 U/L (14-36); Bilirubin,Total 1.2 mg/dL (0.2-1.3); Blood Urea Nitrogen 8 mg/dL (7-17); Calcium 12.9 mg/dL (8.4-10.2); Chloride 105 mmol/L (98-107); Glucose 110 mg/dL (65-110); Sodium 135 mmol/L (137-145)
[2022-02-17] MEDS: ENOXAPARIN 40 MG/0.4 ML SYRINGE SUB-Q (09:27)
[2022-02-17] MEDS: MULTIVITAMINS THERAPEUTIC TAB (*BKC) 1 TABLET PO (09:27)
[2022-02-17] MEDS: LOSARTAN POTASSIUM 50 MG TABLET PO (09:28)
[2022-02-17] MEDS: THIAMINE HCL 100 MG TABLET PO (09:28)
[2022-02-17] MEDS: FOLIC ACID 1 MG TABLET PO (09:28)
[2022-02-17] MEDS: polyethylene glycoL 3350 17 GM POWD.PACK PO (09:28)
--- NOTE | 2022-02-17 15:41 | PM.IMPN ---
Progress Note: A&P Assessment and Plan (1) Infiltrate of lung present on chest x-ray: Code(s): R91.8 - Other nonspecific abnormal finding of lung field Status: Acute Assessment and Plan: wheezing and rhonchi on admission. WBC 8.6, however, she c/o cough and shortness of breath. continue IV Rocephin and Zithromax; Transition to oral abx when afebrile 48 hours and able to take PO. Patient started on azithromycin and cefdinir p.o. currently on day 3 of antibiotic treatment blood cultures no growth today sputum culture uncollected Continue duonebs Q6 hours scheduled. continue supportive care and monitor respiratory status (2) Lesion of liver: Code(s): K76.9 - Liver disease, unspecified Status: Acute Assessment and Plan: Patient c/o abd pain. CT scan suggests numerous liver lesions, diffuse colonic wall thickening suggesting colitis and possilbe splenic lesion suggesting possible metastatic disease. GI constuled and appreciate recommendations. Liver MRI multiple liver nodules. Biopsy in IR 02/16 and pathology pending abd US Extensive hepatic masses throughout the liver, likely due to metastatic disease? LFTs elevated- minimal change. Tbili within normal limits. (3) Hepatic metastasis: Code(s): C78.7 - Secondary malignant neoplasm of liver and intrahepatic bile duct Status: Acute Assessment and Plan: Suggested on imaging. Unknown primary. Biopsy pending. Consult Oncology (4) Hypercalcemia: Code(s): E83.52 - Hypercalcemia Status: Acute Assessment and Plan: Calcium elevated which may be secondary to metastatic disease and dehydration Minimally changed calcium level. Presumed secondary to malignancy Continue IV fluids. Will give lasix 40 mg IV x1. Consider alternate measures if hypercalcemia persists. Calcium trending down (5) Acute hypokalemia: Code(s): E87.6 - Hypokalemia Status: Acute Assessment and Plan: K 2.0 on admission. She has had multiple episodes of vomiting. Given 40 mEQ PO and IV in the ED. Repeat K 2.4 02/15 magnesium 1.5. given 3 grams IV mag sulfate, 40 mEQ IV and 80 mEQ PO this am. Repeat K 3.5, will give additional 40 mEQ PO and repeat labs in the morning. Monitor telemetry 02/17/2022 potassium was 3,60 meq ordered, repeat K and replenish as needed (6) Alcoholism: Code(s): F10.20 - Alcohol dependence, uncomplicated Status: Chronic Assessment and Plan: CIWA protocol as needed PRN lorazepam for CIWA >8 PRN lorazepam 4 mg PRN IV for seizure activity Seizure precautions. Start multivitamin, thiamine and folic acid supplements Care coordination consulted for abstinence program information (7) Tobacco dependence: Code(s): F17.200 - Nicotine dependence, unspecified, uncomplicated Status: Chronic Assessment and Plan: Counseled to quit. nicotine patch as needed (8) Hepatomegaly: Code(s): R16.0 - Hepatomegaly, not elsewhere classified Status: Acute Assessment and Plan: Tumor markers pending Plan CODE STATUS: FULL CODE Disposition: observation Discharge destination: from home. PT/OT consulted Time Spent With Patient Time with patient: Greater than 35 minutes Subjective Date/time seen: 02/17/22 15:41 Objective Data Vital Signs Vital Signs: Vital Signs - 24 hr 02/16/22 20:42 02/16/22 22:00 02/16/22 20:00 Temperature 97.4 F L Pulse Rate 72 89 89 Respiratory Rate 18 18 Blood Pressure 138/96 H Pulse Oximetry 99 99 Oxygen Delivery Room Air 02/16/22 22:35 02/16/22 22:46 02/17/22 06:00 Temperature 97.6 F Pulse Rate 84 88 79 Respiratory Rate 18 18 16 Blood Pressure 153/89 H Pulse Oximetry 98 Oxygen Delivery 02/17/22 08:05 02/17/22 08:07 02/17/22 08:14 Temperature Pulse Rate 82 89 Respiratory Rate 16 16 16 Blood Pressure Pulse Oximetry 98 Oxygen Delivery Room Air Intake
[2022-02-17] MEDS: POTASSIUM CHLORIDE 20 MEQ PACKET (FOR LIQUID) 60 MEQ PO (17:11)
--- NOTE | 2022-02-17 17:57 | PDONCCN ---
HPI - Date of Consult Date/Time: 02/17/22 17:57 Requesting Physician: Trisha Waterman MD Primary Care Provider: Andrew Benson MD - Consult Narrative Reason for consult: Liver mass Narrative: Kathy Mccloud is a 56 year old female with history of smoking for more than 30 years duration as well as drinking, hypertension and dyslipidemia came into the hospital with generalized weakness along with shortness of breath nonproductive cough without any hemoptysis. She has lost almost 10 lb weight in last [address] scan of abdomen pelvis was performed that showed numerous hypodense lesions throughout the liver likely metastatic disease along with diffuse colon wall thickening and 1.5 cm hypoenhancing lesion in the spleen likely metastatic disease, periportal lymphadenopathy and small volume of ascites. Head CT was negative for any acute intracranial process. MRI abdomen was also performed. Alpha-fetoprotein and CA 19-9 is pending. Patient had ultrasound-guided liver biopsy done yesterday and results are pending. Review of Systems - Review of Systems All systems reviewed & are unremarkable except as noted in HPI and bel - Neurologic Reports weakness, Denies vertigo, Denies focal weakness, Denies sensory deficit [facility] Medical History: Medical History (Last Reviewed 02/15/22 @ 07:00 by Vinh Hi MD) HTN (hypertension) Hyperlipidemia Surgical History: Surgical History (Last Reviewed 02/15/22 @ 07:00 by Vinh Hi MD) History of ankle surgery History of carpal tunnel release of both wrists History of endometrial ablation History of knee surgery Family History: Family History (Last Reviewed 02/15/22 @ 07:00 by Vinh Hi MD) Other Cerebrovascular accident Diabetes mellitus Family history of arthritis Family history of malignant neoplasm Heart disease Hypertension - Social History Social History: Social History (Last Reviewed 02/15/22 @ 07:00 by Vinh Hi MD) Gender Identity: Gender identity (if verbalized by the patient): Female Alcohol Use: Alcohol intake: current Drinks per week: 21 Alcohol use details: alcoholism, 1/2 - 3/4 fifth per day Substance Use: Substance use: never Other substance usage details: 18oz day per Others: Spiritual care concerns: No Smoking Status: Smoking status: Current every day smoker Tobacco type: cigarettes Smoking Pack-years: Smoking packs per day: 0.5 Smoking cigarettes per day: 10.0 Social Determinants of Health: Has the Lack of Transportation Kept You From Medical Appointments or From Getting Medications?: Yes Within the Past 12 Months, Were You Worried Whether Your Food Would Run Out Before You Got Money to Buy More?: Never True What is Your Housing Situation Today?: I Have Housing Are You Worried That in the Next 2 Months, You May Not Have Your Own Housing to Live In?: No Do You Have Trouble Paying Your Heating Or Electricity Bill?: No Do You Have Trouble Paying For Medicines?: No Are You Currently Unemployed and Looking for Work?: No Highest Level of Education Completed: Trade/Vocational Certific Do You Have Trouble With Childcare or the Care of a Family Member?: No Exam - Vital Signs Vital Signs - 24 hr 02/16/22 20:42 02/16/22 22:00 02/16/22 20:00 Temperature 36.3 C L Pulse Rate 72 89 89 Respiratory Rate 18 18 Blood Pressure 138/96 H Pulse Oximetry 99 99 Oxygen Delivery Room Air 02/16/22 22:35 02/16/22 22:46 02/17/22 06:00 Temperature 36.4 C Pulse Rate 84 88 79 Respiratory Rate 18 18 16 Blood Pressure 153/89 H Pulse Oximetry 98 Oxygen Delivery 02/17/22 08:05 02/17/22 08:07 02/17/22 08:14 Temperature Pulse Rate 82 89 Respiratory Rate 16 16 16 Blood Pressure Pulse Oximetry 98 Oxygen Delivery Room Air 02/17/22 14:35 Temperature Pulse Rate 79 Respir
[2022-02-17] MEDS: METOPROLOL SUCCINATE EXT REL 100 MG TABCR PO (20:08)
[2022-02-17] MEDS: SENNA/DOCUSATE SODIUM TABLET 2 TAB PO (20:08)
[2022-02-17 23:55] LABS: Potassium 3.3 mmol/L (3.4-5.0)
[2022-02-18] VITALS (8 sets, daily range): BP systolic 123–148; BP diastolic 82–87; PULSE 73–89; RESP 16–24; TEMP 36.1–36.3; O2SAT 95–98
[2022-02-18] MEDS: ALBUTEROL SULFATE NEB 2.5 MG/3 ML INH INHALATION ×2 (02:37→15:04)
[2022-02-18] MEDS: IPRATROPIUM BR 0.02% INH SOLN 0.5 MG/2.5 ML VIAL INHALATION ×2 (02:37→15:04)
[2022-02-18 06:40] LABS: Basophils Absolute Auto 0.1 K/mm3 (0.0-0.1); Basophils Percent Auto 0.8 % (0.2-1.2); Eosinophils Absolute Auto 0.1 K/mm3 (0-0.3); Hematocrit 32.7 % (37.0-47.0); Hemoglobin 11.1 g/dL (12.0-15.0); Immature Granulocyte Absolute 0.24 K/mm3 (0.00-0.031); Immature Granulocyte Percent A 2.3 % (0-0.5); Lymphocytes Absolute Auto 1.16 K/mm3 (0.9-3.2); Lymphocytes Percent Auto 11.2 % (18.3-44.2); Mean Corpuscular HGB Conc 33.9 g/dl (32-36); Mean Corpuscular Hemoglobin 32.4 pg (26-34); Mean Corpuscular Volume 95.3 fl (80-100); Mean Platelet Volume 12.3 fl (7.4-10.4); Monocytes Absolute Auto 1.3 K/mm3 (0.1-0.6); Monocytes Percent Auto 12.3 % (2.6-8.5); Neutrophils Absolute Auto 7.5 K/mm3 (1.3-6.7); Neutrophils Percent Auto 72.4 % (45.5-73.1); Platelet Count Result 192 k/mm3 (150-375); Red Blood Count 3.43 M/mm3 (4.2-5.4); Red Cell Distribution Width 13.2 % (11.5-14.5); White Blood Count 10.4 K/mm3 (4.5-10.0)
[2022-02-18] MEDS: SODIUM CHLORIDE 0.9% IV 1,000 ML 125 ML IV CONT ×2 (08:49→17:25)
[2022-02-18] MEDS: FOLIC ACID 1 MG TABLET PO (08:53)
[2022-02-18] MEDS: CEFDINIR 300 MG CAPSULE PO ×2 (08:53→20:21)
[2022-02-18] MEDS: AZITHROMYCIN 250 MG TABLET 500 MG PO (08:53)
[2022-02-18] MEDS: LOSARTAN POTASSIUM 50 MG TABLET PO (08:53)
[2022-02-18] MEDS: ENOXAPARIN 40 MG/0.4 ML SYRINGE SUB-Q (08:53)
[2022-02-18] MEDS: THIAMINE HCL 100 MG TABLET PO (08:53)
[2022-02-18] MEDS: polyethylene glycoL 3350 17 GM POWD.PACK PO (08:54)
[2022-02-18] MEDS: MULTIVITAMINS THERAPEUTIC TAB (*BKC) 1 TABLET PO (08:54)
[2022-02-18 09:22] LABS: Alanine Aminotransferase 73 U/L (6-35); Albumin Level 2.7 g/dL (3.5-5.1); Alkaline Phosphatase 347 U/L (38-126); Anion Gap 4 mmol/L (8-16); Aspartate Amino Transferase 161 U/L (14-36); Bilirubin,Total 1.3 mg/dL (0.2-1.3); Blood Urea Nitrogen 8 mg/dL (7-17); Calcium 13.4 mg/dL (8.4-10.2); Carbon Dioxide 25 mmol/L (22-30); Chloride 105 mmol/L (98-107); Estimated CRCL calculation 80 ml/min; Estimated Glomerular Filt Rate > 60; Glucose 78 mg/dL (65-110); Potassium 3.6 mmol/L (3.4-5.0); Sodium 134 mmol/L (137-145)
[2022-02-18 10:27] LABS: Folic Acid 13.2 ng/mL (2.76->20)
--- NOTE | 2022-02-18 15:12 | PM.IMPN ---
Progress Note: A&P Assessment and Plan (1) Infiltrate of lung present on chest x-ray: Code(s): R91.8 - Other nonspecific abnormal finding of lung field Status: Acute Assessment and Plan: wheezing and rhonchi on admission. WBC 8.6, however, she c/o cough and shortness of breath. continue IV Rocephin and Zithromax; Transition to oral abx when afebrile 48 hours and able to take PO. Patient started on azithromycin and cefdinir p.o. currently on day 4 of antibiotic treatment blood cultures no growth to date sputum culture uncollected Continue duonebs Q6 hours scheduled. continue supportive care and monitor respiratory status Patient is doing much better today and is still supporting mild cough, denies shortness of breath. (2) Lesion of liver: Code(s): K76.9 - Liver disease, unspecified Status: Acute Assessment and Plan: Patient c/o abd pain. CT scan suggests numerous liver lesions, diffuse colonic wall thickening suggesting colitis and possilbe splenic lesion suggesting possible metastatic disease. GI constuled and appreciate recommendations. Liver MRI multiple liver nodules. Biopsy in IR 02/16 and pathology pending abd US Extensive hepatic masses throughout the liver, likely due to metastatic disease? LFTs elevated- minimal change. Tbili within normal limits. Patient having mild confusion per aunts and mother. This could be contributing to patient's chronic alcoholism or possible metastatic disease. (3) Hepatic metastasis: Code(s): C78.7 - Secondary malignant neoplasm of liver and intrahepatic bile duct Status: Acute Assessment and Plan: Suggested on imaging. Unknown primary. Biopsy pending. Consult Oncology in following patient (4) Hypercalcemia: Code(s): E83.52 - Hypercalcemia Status: Acute Assessment and Plan: Calcium elevated which may be secondary to metastatic disease and dehydration Minimally changed calcium level. Presumed secondary to malignancy Continue IV fluids. Will give lasix 40 mg IV x1. Consider alternate measures if hypercalcemia persists. Calcium trending down (5) Acute hypokalemia: Code(s): E87.6 - Hypokalemia Status: Acute Assessment and Plan: K 2.0 on admission. She has had multiple episodes of vomiting. Given 40 mEQ PO and IV in the ED. Repeat K 2.4 02/15 magnesium 1.5. given 3 grams IV mag sulfate, 40 mEQ IV and 80 mEQ PO this am. Repeat K 3.5, will give additional 40 mEQ PO and repeat labs in the morning. Monitor telemetry 02/17/2022 potassium was 3,60 meq ordered, repeat K and replenish as needed 02/18/22 potassium today 3.6. (6) Alcoholism: Code(s): F10.20 - Alcohol dependence, uncomplicated Status: Chronic Assessment and Plan: CIWA protocol as needed PRN lorazepam for CIWA >8 PRN lorazepam 4 mg PRN IV for seizure activity Seizure precautions. Start multivitamin, thiamine and folic acid supplements Care coordination consulted for abstinence program information (7) Tobacco dependence: Code(s): F17.200 - Nicotine dependence, unspecified, uncomplicated Status: Chronic Assessment and Plan: Counseled to quit. nicotine patch as needed (8) Hepatomegaly: Code(s): R16.0 - Hepatomegaly, not elsewhere classified Status: Acute Assessment and Plan: Tumor markers pending Plan CODE STATUS: FULL CODE Disposition: observation Discharge destination: from home. PT/OT consulted Subjective Date/time seen: 02/18/22 15:12 Interval history: Patient 6-year-old female with history of alcohol abuse and hypertension. Patient is experiencing weakness and mild confusion during her hospital stay. This could be contributing to patient's chronic alcoholism and possible metastatic disease. Patient has been working with therapy and Oncology during this time. Patient states that she still has mild cough but shortness of breath has imp
[2022-02-18 15:16] LABS: CA 19-9 202 U/mL (<34)
[2022-02-18] MEDS: METOPROLOL SUCCINATE EXT REL 100 MG TABCR PO (20:20)
[2022-02-18] MEDS: SENNA/DOCUSATE SODIUM TABLET 2 TAB PO (20:21)
[2022-02-19] MEDS: SODIUM CHLORIDE 0.9% IV 1,000 ML 125 ML IV CONT (00:42)
[2022-02-19] MEDS: ALBUTEROL SULFATE NEB 2.5 MG/3 ML INH INHALATION (02:38)
[2022-02-19] MEDS: IPRATROPIUM BR 0.02% INH SOLN 0.5 MG/2.5 ML VIAL INHALATION (02:38)
[2022-02-19 02:40] VITALS: PULSE 76; RESP 18
[2022-02-19 02:51] VITALS: PULSE 73; RESP 18
[2022-02-19 06:00] VITALS: BP 144/74; PULSE 81; RESP 14; TEMP 35.8; O2SAT 97
[2022-02-19 07:00] LABS: Hematocrit 32.4 % (37.0-47.0); Hemoglobin 10.8 g/dL (12.0-15.0); Mean Corpuscular HGB Conc 33.3 g/dl (32-36); Mean Corpuscular Volume 95.9 fl (80-100); Mean Platelet Volume 11.9 fl (7.4-10.4); Platelet Count Result 188 k/mm3 (150-375); Red Blood Count 3.38 M/mm3 (4.2-5.4); Red Cell Distribution Width 13.5 % (11.5-14.5); White Blood Count 10.3 K/mm3 (4.5-10.0)
[2022-02-19 07:52] LABS: Alanine Aminotransferase 75 U/L (6-35); Albumin Level 2.6 g/dL (3.5-5.1); Alkaline Phosphatase 316 U/L (38-126); Anion Gap 5 mmol/L (8-16); Aspartate Amino Transferase 148 U/L (14-36); Bilirubin,Total 1.1 mg/dL (0.2-1.3); Blood Urea Nitrogen 8 mg/dL (7-17); Calcium 13.3 mg/dL (8.4-10.2); Carbon Dioxide 22 mmol/L (22-30); Chloride 109 mmol/L (98-107); Estimated CRCL calculation 70 ml/min; Estimated Glomerular Filt Rate > 60; Glucose 90 mg/dL (65-110); Magnesium 1.4 mg/dL (1.6-2.3); Potassium 2.7 mmol/L (3.4-5.0); Sodium 136 mmol/L (137-145)
[2022-02-19] MEDS: MULTIVITAMINS THERAPEUTIC TAB (*BKC) 1 TABLET PO (08:38)
[2022-02-19] MEDS: LOSARTAN POTASSIUM 50 MG TABLET PO (08:38)
[2022-02-19] MEDS: CEFDINIR 300 MG CAPSULE PO (08:38)
[2022-02-19] MEDS: THIAMINE HCL 100 MG TABLET PO (08:38)
[2022-02-19] MEDS: AZITHROMYCIN 250 MG TABLET 500 MG PO (08:38)
[2022-02-19] MEDS: FOLIC ACID 1 MG TABLET PO (08:38)
[2022-02-19] MEDS: ENOXAPARIN 40 MG/0.4 ML SYRINGE SUB-Q (08:38)
[2022-02-19] MEDS: polyethylene glycoL 3350 17 GM POWD.PACK PO (08:38)
[2022-02-19] MEDS: POTASSIUM CHLORIDE 20 MEQ PACKET (FOR LIQUID) 60 MEQ PO (10:12)
--- NOTE | 2022-02-19 12:10 | PCOTNOTE ---
Attempted to see Patient this P.M. Patient refused to participate this date.
[2022-02-19 12:11] LABS: Potassium 4.2 mmol/L (3.4-5.0)
--- NOTE | 2022-02-19 13:05 | PM.DS ---
DS: Admitting Diagnosis Discharge Date 02/19/22 Admitting Diagnosis Pneumonia, liver mass DS: Discharge Diagnosis Discharge Diagnosis (1) Infiltrate of lung present on chest x-ray: Code(s): R91.8 - Other nonspecific abnormal finding of lung field Status: Acute (2) Lesion of liver: Code(s): K76.9 - Liver disease, unspecified Status: Acute (3) Hepatic metastasis: Code(s): C78.7 - Secondary malignant neoplasm of liver and intrahepatic bile duct Status: Acute (4) Hypercalcemia: Code(s): E83.52 - Hypercalcemia Status: Acute (5) Acute hypokalemia: Code(s): E87.6 - Hypokalemia Status: Acute (6) Alcoholism: Code(s): F10.20 - Alcohol dependence, uncomplicated Status: Chronic (7) Tobacco dependence: Code(s): F17.200 - Nicotine dependence, unspecified, uncomplicated Status: Chronic (8) Hepatomegaly: Code(s): R16.0 - Hepatomegaly, not elsewhere classified Status: Acute DS: Summary Hospital Course Reason for hospitalization: Pneumonia, liver mass Hospital Course: 56-year-old female with history of alcoholism and hypertension presented to the ED with multiple complaints of nonproductive cough, abdominal pain and dizziness. Patient's reported that she is a 20 year alcoholic, daily drinker, half to 3/4 of a fifth over weekend. Patient's has been concern that her problems are due to alcohol abuse. CT of the abdomen pelvis revealed numerous hypodense lesions scattered throughout the liver most likely metastatic disease, diffuse colonic wall thickening, 1.5 slightly hypoenhancing lesion at the dome of the spleen potentially metastatic, lymphadenopathy which could be metastatic, small amount of ascites in the pelvis. Chest x-ray revealed bronchitis potentially with early pneumonia and reactive airway disease. CT head revealed no acute intracranial process. Patient started on Rocephin and Zithromax for pneumonia. Gastroenterology and oncology consulted and have a following in the patient's care. Tumor markers ordered for the liver, CA 19-9, are currently pending and will be followed up as an outpatient. Gastroenterology ordered liver biopsy and biopsy revealed metastatic carcinoma compatible with breast primary. Abdominal ultrasound revealed extensive hepatic masses throughout the liver likely due to metastatic disease. Patient's LFTs were mildly elevated and remained unchanged throughout her stay. Total bilirubin decreased. Due to chronic alcoholism CIWA protocol as needed initiated, p.r.n. lorazepam for CIWA greater than 8, p.r.n. lorazepam 4 mg p.r.n. IV for seizure activity, seizure protocols, multivitamin with folic acid and thiamine. Patient did not experience any withdrawal symptoms or seizure activity during her hospital stay. Patient's pneumonia symptoms such as cough and shortness of breath improved. I discussed with Dr. Horn about patient's care and follow-up and he advised patient does not go to therapy post hospital stay due to the need for possible cancer treatment. Dr. Horn would like patient to follow up with her next week or soon as possible in order to initiate treatment plans. Time Spent with Patient Time attestation: Total time spent providing and/or coordinating discharge services: Exam Narrative: GENERAL: Comfortable, no acute distress HENMT: moist mucous membranes EYES: EOM intact b/l NECK: no lymphadenopathy RESPIRATORY: Distant breath sounds CARDIO: RRR GI: soft, tenderness over biopsy site (RUQ), bowel sounds present SKIN: no rashes EXTREMITIES: no edema, redness or tenderness DS: Data Data Completed and Pending Labs on day of discharge: Labs from last 24 hours 02/19/22 02/19/22 02/19/22 11:58 06:52 06:52 WBC 10.3 H RBC 3.38 L Hgb 10.8 L Hct 32.4 L MCV 95.9 MCH 32.0 MCHC 33.3 RDW 13.5 Plt Count 188 MPV 11.9 H Sodium 136 L Potassium 4.2 2.7 L*
--- NOTE | 2022-02-19 13:50 | PM.IMPN ---
Progress Note: A&P Assessment and Plan (1) Infiltrate of lung present on chest x-ray: Code(s): R91.8 - Other nonspecific abnormal finding of lung field Status: Acute Assessment and Plan: wheezing and rhonchi on admission. WBC 8.6, however, she c/o cough and shortness of breath. continue IV Rocephin and Zithromax; Transition to oral abx when afebrile 48 hours and able to take PO. Patient started on azithromycin and cefdinir p.o. currently on day 5 of antibiotic treatment blood cultures no growth to date sputum culture uncollected Continue duonebs Q6 hours scheduled. continue supportive care and monitor respiratory status Patient is doing much better today and is still supporting mild cough, denies shortness of breath. (2) Lesion of liver: Code(s): K76.9 - Liver disease, unspecified Status: Acute Assessment and Plan: Patient c/o abd pain. CT scan suggests numerous liver lesions, diffuse colonic wall thickening suggesting colitis and possible splenic lesion suggesting possible metastatic disease. GI constuled and appreciate recommendations. Liver MRI multiple liver nodules. Biopsy in IR 02/16 and pathology revealed metastatic carcinoma compatible with breast primary abd US Extensive hepatic masses throughout the liver, likely due to metastatic disease? LFTs elevated- minimal change. Tbili within normal limits. Patient having mild confusion per aunts and mother. This could be contributing to patient's chronic alcoholism or possible metastatic disease. Biopsy in IR 12 and pathology revealed metastatic carcinoma compatible with breast primary peer CA 19-9 level of 202. I discussed with Dr. Horn and he recommend patient follow up with him early next week to discuss treatment planning. Patient's family concerned because they would like patient to go to physical therapy rehab to regain strength. When I discussed with Dr. Horn he was against physical therapy due to delay in cancer therapy. I talked with family personally and discussed the risk and benefits for both physical therapy and chemotherapy to an extent. I answered her questions the best my ability. Awaiting family's decision whether patient go home or to rehab. (3) Hepatic metastasis: Code(s): C78.7 - Secondary malignant neoplasm of liver and intrahepatic bile duct Status: Acute Assessment and Plan: Suggested on imaging. Unknown primary. Biopsy pending. Consult Oncology in following patient (4) Hypercalcemia: Code(s): E83.52 - Hypercalcemia Status: Acute Assessment and Plan: Calcium elevated which may be secondary to metastatic disease and dehydration Minimally changed calcium level. Presumed secondary to malignancy Continue IV fluids. Will give lasix 40 mg IV x1. Consider alternate measures if hypercalcemia persists. Calcium trending down (5) Acute hypokalemia: Code(s): E87.6 - Hypokalemia Status: Acute Assessment and Plan: K 2.0 on admission. She has had multiple episodes of vomiting. Given 40 mEQ PO and IV in the ED. Repeat K 2.4 02/15 magnesium 1.5. given 3 grams IV mag sulfate, 40 mEQ IV and 80 mEQ PO this am. Repeat K 3.5, will give additional 40 mEQ PO and repeat labs in the morning. Monitor telemetry 02/17/2022 potassium was 3,60 meq ordered, repeat K and replenish as needed 02/18/22 potassium 3.6 and stable (6) Alcoholism: Code(s): F10.20 - Alcohol dependence, uncomplicated Status: Chronic Assessment and Plan: CIWA protocol as needed PRN lorazepam for CIWA >8 PRN lorazepam 4 mg PRN IV for seizure activity Seizure precautions. Start multivitamin, thiamine and folic acid supplements Care coordination consulted for abstinence program information (7) Tobacco dependence: Code(s): F17.200 - Nicotine dependence, unspecified, uncomplicated Status: Chronic Assessment and Plan: Counseled to quit. nicotine p
[2022-02-19 14:00] VITALS: BP 137/94; PULSE 86; RESP 20; TEMP 36.6; O2SAT 95
--- NOTE | 2022-02-19 16:01 | WPDONCPN ---
Progress Note: A/P - Additional Plan Metastatic carcinoma compatible with breast primary. Patient is status post ultrasound-guided liver biopsy done on January 2022. Complete pathology report including ERPR receptor and HER2/tyree receptor is pending. Mom a breast examination there is no evidence of lymphadenopathy and any solid lesions. Patient is likely going to be discharged today. We will order PET scan and bilateral diagnostic mammogram as an outpatient. Will also check CA 15-3 today. He will call office next week to make an appointment. - Time Spent With Patient Total time spent is greater than 50% in coordination of care (as documented) at patient's floor/unit and/or counseling patient: 25 - 35 minutes Subjective Interval history: Metastatic carcinoma compatible with breast primary Review of Systems - Review of Systems Patient looks to be quite comfortable. She denies any abdominal pain and chest pain. Denies any melena hematochezia. She seems to be less anxious today. - Neurologic Reports weakness, Denies vertigo, Denies focal weakness, Denies sensory deficit Exam Vital signs: Temp Pulse Resp BP Pulse Ox O2 Del Method 36.6 C 86 20 137/94 H 95 Room Air 02/19/22 14:00 02/19/22 14:00 02/19/22 14:00 02/19/22 14:00 02/19/22 14:00 02/19/22 08:00 Narrative: Bilateral breast examination was performed. I was not able to find any lung small cell lymphadenopathy. Lungs are clear to auscultation bilaterally Cardiovascular regular rate rhythm no murmurs Abdomen soft nontender nondistended bowel sounds are positive Extremities no edema PN: Objective Data - Labs CBC & Chem 7: 02/19/22 06:52 02/19/22 11:58 Labs: Laboratory Results - last 24 hr 02/14/22 02/19/22 02/19/22 19:36 06:52 06:52 WBC 10.3 H RBC 3.38 L Hgb 10.8 L Hct 32.4 L MCV 95.9 MCH 32.0 MCHC 33.3 RDW 13.5 Plt Count 188 MPV 11.9 H Sodium 136 L Potassium 2.7 L* Chloride 109 H Carbon Dioxide 22 Anion Gap 5 L BUN 8 Creatinine 0.70 Estim Creat Clear Calc 70 Estimated GFR > 60 Glucose 90 Calcium 13.3 H Magnesium 1.4 L Total Bilirubin 1.1 AST 148 H ALT 75 H Alkaline Phosphatase 316 H Total Protein 6.0 L Albumin 2.6 L Ref Lab Test Name Ref Lab Test Result 3 pg/ml 02/19/22 11:58 WBC RBC Hgb Hct MCV MCH MCHC RDW Plt Count MPV Sodium Potassium 4.2 Chloride Carbon Dioxide Anion Gap BUN Creatinine Estim Creat Clear Calc Estimated GFR Glucose Calcium Magnesium Total Bilirubin AST ALT Alkaline Phosphatase Total Protein Albumin Ref Lab Test Name Ref Lab Test Result
[2022-02-19 17:52] LABS: Alpha Fetoprotein Tumor Marker 1.6 ng/mL (<6.1)
--- NOTE | 2022-02-20 14:24 | PC.NURSE ---
Family voiced concerns that patient is weak at home and needs some assistance. This nurse notified discharging hospitalist. Okay to start home health services. Care coordination made aware.
[2022-02-24 18:36] LABS: Parathyroid Hormone Related Pr 29 pg/mL (11-20)
[2022-02-24 20:45] LABS: CA 15-3 14 U/mL (<32)
== END 2022-02-19 18:50 | disposition home or self-care (01) | DRG 435 ==
LOC: ANHED 20:35 → ANH3MEDSUR 23:59
PROVIDERS: Emergency Medicine; Internal Medicine Gastroenterology; Internal Medicine Hematology & Oncology; Nurse Practitioner Family; Physician Assistant; Admitting Provider Internal Medicine; Emergency Provider Emergency Medicine; PCP Family Medicine; Visit Provider Internal Medicine Critical Care Medicine
DX: C78.7 Secondary malignant neoplasm of liver and intrahepatic bile duct (principal); J18.9 Pneumonia, unspecified organism; C78.89 Secondary malignant neoplasm of other digestive organs; C50.919 Malignant neoplasm of unspecified site of unspecified female breast; Z20.822 Contact with and (suspected) exposure to COVID-19; E83.52 Hypercalcemia; R91.8 Other nonspecific abnormal finding of lung field; E87.6 Hypokalemia; F10.20 Alcohol dependence, uncomplicated; R16.0 Hepatomegaly, not elsewhere classified; F17.210 Nicotine dependence, cigarettes, uncomplicated; I10 Essential (primary) hypertension; E78.5 Hyperlipidemia, unspecified; K52.9 Noninfective gastroenteritis and colitis, unspecified
CPT/HCPCS: 36415; 47000; 70450; 71046; 71260; 74177; 74183; 76705; 76942; 80053; 80307; 81001; 82105; 82140; 82607; 82746; 83519; 83605; 83735; 83880; 83970; 84132; 84145; 84484; 84550; 85025; 85027; 85055; 85610; 85730; 86300; 86301; 87040; 87637; 88307; 88312; 88313; 88342; 93005; 93306; 94640; 96361; 96365; 96366; 96367; 96375; 97110; 97116; 97161; 97165; 97530; 99285; A9270; A9577; J0456; J0696; J1650; J3475; J3480; J7030; J7040; Q9967